=== PATIENT | female | born 1980 ===

== ENCOUNTER 2024-11-29 17:01 | Emergency (ER) | payer MEDICAID ==
[~2024-11-29] VITALS: Ht 162.6 cm; Wt 50.6 kg
[2024-11-29 17:08] VITALS: BP 154/109; PULSE 140; O2SAT 97
--- NOTE | 2024-11-29 17:51 | Physician Documentation ---
History of Present Illness ~ Chief Complaint: Nausea Stated Complaint: VOMITTING Time Seen by MD: 17:46 HPI Patient is seen today with complaints of acute opiate withdrawal with nausea and vomiting. Patient states she last used fentanyl two days ago however upon further questioning she states he actually used a little bit more just earlier today. Patient denies any chest pain or shortness of breath. Patient does admit to abdominal cramping and runny nose and teary eyes. Patient has no other concern or complaint at this time. Medication Reconciliation Allergies: Coded Allergies: Penicillins (Unverified Allergy, Unknown, 11/29/24) Review of Systems Constitutional: Denies: chills, fever, weakness Eyes: Denies: pain, blurred vision ENT: Denies: ear pain, nose pain, throat pain, mouth pain Respiratory: Denies: cough, shortness of breath Cardiovascular: Denies: chest pain, palpitations Gastrointestinal: Denies: abdominal pain, nausea, vomiting Genitourinary: Denies: burning, dysuria Female Genitalia: Denies: vaginal discharge, pelvic pain Neurological: Denies: headache, dizziness Musculoskeletal: Denies: pain, swelling Integumentary: Denies: rash, lesions Allergic/Immunologic: Denies: hives, itching Hematologic/Lymphatic: Denies: no symptoms reported Psychiatric: Denies: depression, anxiety Physical Exam Vital Signs: Temperature: 99.4, Source: Temporal, Heart Rate: 140, Respiratory Rate: 20, BP: 154/109, Pulse Oximetry: 97, Weight: 50.600 Oxygen Flow Rate: 0 Progress Results/Orders Results/Orders Completed Orders - DAVI JOY PAC Ondansetron Disint. Tablet (Zofran Odt T (11/29/24 17:49) Clonidine Tablet (Catapres Tablet) (11/29/24 17:49) Vital Signs 11/29/24 17:08 Temp 99.4 Pulse 140 Resp 20 B/P (MAP) 154/109 Pulse Ox 97 O2 Flow Rate 0 Laboratory Tests Test 11/29/24 17:35 CBC Comment Chemistry Comments Medical Decision Making Findings Patient is seen today with complaints of acute opiate withdrawal with nausea and vomiting. Patient states she last used fentanyl two days ago however upon further questioning she states he actually used a little bit more just earlier today. Patient denies any chest pain or shortness of breath. Patient does admit to abdominal cramping and runny nose and teary eyes. Patient has no other concern or complaint at this time. Patient was treated for opiate withdrawal with Zofran for nausea and loperamide for diarrhea and clonidine for withdrawal symptoms. Prescriptions of the same sent to patient's pharmacy and patient will follow up with [facility] for medically assisted treatment with Suboxone. Short prescription of Suboxone sent to patient's pharmacy as well. Departure Disposition: HOME / SELF CARE / HOMELESS Impression: Primary Impression: Opiate withdrawal Additional Impression: Opioid use disorder, moderate, dependence Condition: Improved Discharge Instructions: Opioid Use Disorder Additional Instructions: Patient was treated for opiate withdrawal with Zofran for nausea and loperamide for diarrhea and clonidine for withdrawal symptoms. Prescriptions of the same sent to patient's pharmacy and patient will follow up with [facility] for medically assisted treatment with Suboxone. Short prescription of Suboxone sent to patient's pharmacy as well. Referrals: NO PRIMARY CARE PROVIDER (PCP) Prescriptions Loperamide Hcl (Loperamide) 2 Mg Capsule 2 CAP PO Q6H for loose stool for 3 Days, #20 CAP 0 Refills Prov: DAVI JOY 11/29/24 ONDANSETRON ODT 4mg tablet (ONDANSETRON ODT) 4 Mg Tab.rapdis 4 MG PO BID for 7 Days, #14 TAB Prov: DAVI JOY 11/29/24 Clonidine HCl (Clonidine HCl) 0.1 Mg Tablet 1 TAB PO BID for 7 Days, #14 TAB 0 Refills Prov: DAVI JOY 11/29/24 Signature Scribe Signature: No scribe Attestation: No scribe DAVI JOY Nov 29, 2024 17:51
[2024-11-29 17:58] LABS: MEAN PLATELET VOLUME 7.6 FL (7.4-10.4); RED CELL DISTRIBUTION WIDTH 13.1 % (11.5-14.5)
[2024-11-29 18:01] VITALS: RESP 18
[2024-11-29] MEDS: ondansetron 4mg rapidly disintigrating tab PO STA (18:03)
[2024-11-29] MEDS ORDERED: CLON-418 PO (18:10)
[2024-11-29] MEDS ORDERED: ONDA-243 PO (18:10)
[2024-11-29] MEDS ORDERED: LOPE2CAP PO (18:10)
[2024-11-29 18:12] LABS: CREATININE 0.94 MG/DL (0.40-0.90); TOTAL CARBON DIOXIDE 22.9 MMOL/L (24-32); eCRCL 61 ML/MIN; eGFR 65 ML/MIN
[2024-11-29 18:16] VITALS: TEMP 99.4
== END 2024-11-29 18:20 | disposition home or self-care (01) ==
LOC: ER 17:02
DX: F11.23 Opioid dependence with withdrawal (principal); Z88.0 Allergy status to penicillin
CPT/HCPCS: 36415; 80053; 83690; 85025; 99283